=== PATIENT | male | born 1985 ===

== ENCOUNTER 2017-08-04 10:15 | Emergency (ER) | payer OTHER ==
[2017-08-04 10:32] VITALS: BP 155/96; PULSE 92; RESP 18; TEMP 98.4; O2SAT 96
[2017-08-04] MEDS ORDERED: Acetaminophen-Codeine 300/30 mg Tab PO STA (10:35)
[2017-08-04] MEDS ORDERED: Acetaminophen-Codeine 300/30 mg Tab PO ONE (10:49)
--- NOTE | 2017-08-04 11:55 | C.PDOC ---
History Of Present Illness 32 year old male presents to the ED c/o right knee pain for 2 days. Patient states he has not taken any medication for the pain, is able to ambulate with some pain. Patient denies recent injury, no known mechanism, weakness, numbness. Time Seen by Provider: 08/04/17 10:30 Chief Complaint (Nursing): Lower Extremity Problem/Injury History Per: Patient History/Exam Limitations: no limitations Onset/Duration Of Symptoms: Days Current Symptoms Are (Timing): Still Present Recent travel outside of the [place]: No Additional History Per: Patient - Knee Description Of Injury: Other Currently Unable To: Bend Or Move Past Medical History Reviewed: Historical Data, Nursing Documentation, Vital Signs Vital Signs: Last Vital Signs Temp 98.4 F 08/04/17 10:25 Pulse 92 H 08/04/17 10:25 Resp 18 08/04/17 10:25 BP 155/96 H 08/04/17 10:25 Pulse Ox 96 08/04/17 11:55 - Medical History PMH: Migraine Surgical History: No Surg Hx Family History: States: Unknown Family Hx - Social History Hx Alcohol Use: No Hx Substance Use: No - Immunization History Hx Tetanus Toxoid Vaccination: No Hx Influenza Vaccination: No Hx Pneumococcal Vaccination: No Review Of Systems Constitutional: Negative for: Fever, Chills Cardiovascular: Negative for: Chest Pain Respiratory: Negative for: Cough Gastrointestinal: Negative for: Nausea, Vomiting, Abdominal Pain Musculoskeletal: Positive for: Leg Pain Skin: Negative for: Rash Neurological: Negative for: Weakness, Numbness Physical Exam - Physical Exam Appears: Non-toxic, No Acute Distress Skin: Normal Color, Warm, Dry Head: Atraumatic, Normacephalic Eye(s): bilateral: Normal Inspection Nose: No Discharge, No Deformity Extremity: Normal ROM, Tenderness (right superior anterior knee), No Calf Tenderness, Capillary Refill (< 2 seconds), No Deformity, No Swelling, Other ( neurovascular intact) Pulses: Left Dorsalis Pedis: Normal, Right Dorsalis Pedis: Normal Neurological/Psych: Oriented x3, Normal Speech, Normal Cognition ED Course And Treatment O2 Sat by Pulse Oximetry: 96 (On RA) Pulse Ox Interpretation: Normal - Other Rad Right knee X-Ray X-Ray: Interpreted by Me Interpretation: No fracture or dislocation seen in preliminary read Medical Decision Making Medical Decision Making: Assessment: Knee pain Plan: * Knee immobilizer * Crutches * Right knee X-Ray * Motrin 600 mg PO * Tylenol/codein 1 ea PO Disposition Counseled Patient/Family Regarding: Studies Performed, Diagnosis, Need For Followup, Rx Given - Disposition Referrals: [facility] [Outside] Nico Genao III, MD [Staff Provider] - Disposition: HOME/ ROUTINE Disposition Time: 11:54 Condition: STABLE Additional Instructions: follow up with your doctor in 2 days call to make an appointment take medications as prescribed return to ER if symptoms worsens or progress your xray was preliminary read as no broken bone and will be officially read by radiologist. Prescriptions: Acetaminophen/Codeine [Tylenol/Codeine 300 MG/30 MG] 1 tab PO Q6H PRN #12 tab PRN Reason: Pain, Severe (8-10) Naproxen [Naprosyn] 500 mg PO BID PRN #16 tab PRN Reason: Pain, Moderate (4-7) Instructions: Knee Pain (DC) Forms: Gen Discharge Inst Swedish, [employer] (Swedish) Print Language: GUYANESE - Clinical Impression Clinical Impression: Knee pain - Scribe Statement The provider has reviewed the documentation as recorded by the Scribe Williams Cruz All medical record entries made by the Scribe were at my direction and personally dictated by me. I have reviewed the chart and agree that the record accurately reflects my personal performance of the history, physical exam, medical decision making, and the department course for this patient. I have also personally directed, reviewed, and agree with the discharge instructions and disposition.
--- NOTE | 2017-08-04 16:26 | RAD ---
PROCEDURE: Right Knee Radiographs. HISTORY: pain COMPARISON: None. FINDINGS: BONES: Normal. No fracture. JOINTS: Normal. No osteoarthritis. JOINT EFFUSION: None. OTHER FINDINGS: None. IMPRESSION: Normal radiographs of the right knee.
== END 2017-08-04 12:31 | disposition home or self-care (01) ==
LOC: C.ER 10:15
DX: M25.561 Pain in right knee (principal)

== ENCOUNTER 2018-09-06 02:57 | Emergency (ER) | payer OTHER ==
[2018-09-06 03:15] VITALS: RESP 18; O2SAT 99
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
[2018-09-06 04:29] VITALS: BP 138/84; PULSE 82; TEMP 98
== END 2018-09-06 04:29 | disposition home or self-care (01) ==
LOC: C.ER 02:57
DX: S09.90XA Unspecified injury of head, initial encounter (principal); V79.50XA Passenger on bus injured in collision with unspecified motor vehicles in traffic accident, initial encounter